=== PATIENT | female | born 1985 | race Caucasian/White ===

== ENCOUNTER 2018-01-30 08:38 | Emergency (ER) | payer BC ==
[~2018-01-30] VITALS: Ht 162.6 cm; Wt 89.9 kg
[2018-01-30 08:40] VITALS: BP 134/91
[2018-01-30] MEDS ORDERED: DEXAMETHASONE 4 MG/ML, 1ML ONE (09:29)
[2018-01-30] MEDS ORDERED: DEXAMETHASONE 4 MG/ML, 1ML PO ONE (09:30)
== END 2018-01-30 09:46 | disposition home or self-care (01) ==
LOC: ED 09:40
DX: M94.0 Chondrocostal junction syndrome [Tietze] (principal); B34.9 Viral infection, unspecified
CPT/HCPCS: 71046; 93005; 99283; J1100

== ENCOUNTER 2019-09-05 15:54 | Emergency (ER) | payer BC ==
[~2019-09-05] VITALS: Ht 162.6 cm; Wt 74.2 kg
[2019-09-05] MEDS ORDERED: CEFTRIAXONE PMX 1GM/50ML 50 ML ONE (17:17)
[2019-09-05] MEDS ORDERED: KETOROLAC 30 MG/1 ML ONE (17:18)
[2019-09-05 17:32] LABS: BASOPHILS % (AUTO) 0 % (0-1); EOSINOPHILS # (AUTO) 0.02 x10^3/uL (0-0.4); EOSINOPHILS % (AUTO) 0 % (1-7); LYMPHOCYTES # (AUTO) 0.99 x10^3/uL (1-3.4); LYMPHOCYTES % (AUTO) 9 % (22-44); MD NO; MEAN CORPUSCULAR HEMOGLOBIN 31.4 pg (27.0-34.8); MEAN CORPUSCULAR HGB CONC 33.7 g/dL (32.4-35.8); MEAN CORPUSCULAR VOLUME 93.3 fL (80-100); MEAN PLATELET VOLUME 7.8 fL (7.4-10.4); MONOCYTES # (AUTO) 0.85 x10^3/uL (0.2-0.8); MONOCYTES % (AUTO) 8 % (2-9); NEUTROPHILS # (AUTO) 9.29 x10^3/uL (1.8-6.8); NEUTROPHILS % (AUTO) 83 % (42-75); PLATELET COUNT 261 x10^3/uL (130-400); RED BLOOD COUNT 4.26 x10^6/uL (3.82-5.3); RED CELL DISTRIBUTION WIDTH 12.5 % (9.6-15.2)
[2019-09-05 17:41] LABS: ALBUMIN 3.4 g/dL (3.4-5.0); ANION GAP 8 mmol/L (5-15); CALCIUM 8.5 mg/dL (8.5-10.1); CHLORIDE 105 mmol/L (98-107)
[2019-09-05 17:59] LABS: MICROSCOPIC INDICATED
[2019-09-05] MEDS ORDERED: SODIUM CHLORIDE FLUSH 10ML SYR IVF ONE (18:00)
[2019-09-05] MEDS ORDERED: CEFTRIAXONE PMX 1GM/50ML 50 ML IVPB ONE (18:00)
[2019-09-05] MEDS ORDERED: SODIUM CHLORIDE 0.9% 1,000ML IVBOLUS ONE (18:00)
[2019-09-05] MEDS ORDERED: KETOROLAC 30 MG/1 ML IVPush ONE (18:00)
[2019-09-05 18:48] VITALS: BP 118/78
--- NOTE | 2019-09-05 18:48 | NUR ---
TASK RN. PT D/C'D PER ORDERS. STEADY GAIT UPON D/C, HAS ALL OWN BELONGINGS.
== END 2019-09-05 18:50 | disposition home or self-care (01) ==
LOC: ED 17:09
DX: N10 Acute pyelonephritis (principal); R00.0 Tachycardia, unspecified; I51.7 Cardiomegaly; R50.9 Fever, unspecified
CPT/HCPCS: 36415; 80048; 81001; 82040; 83605; 84145; 85025; 87040; 87086; 93005; 96365; 96375; 99284; J0696; J1885; J7030

== ENCOUNTER 2020-03-08 14:21 | Emergency (ER) | payer BC ==
[~2020-03-08] VITALS: Ht 160 cm; Wt 77.6 kg
[2020-03-08 14:30] VITALS: BP 118/74
[2020-03-08] MEDS ORDERED: LIDOCAINE-MPF 1%, 5ML ONE (14:59)
[2020-03-08] MEDS ORDERED: DIPH,PERTUSS(ACELL),TET VAC/PF 0.5 ML IM-VACC ONE ×2 (14:59→15:00)
[2020-03-08] MEDS ORDERED: LIDOCAINE-MPF 1%, 5ML INFIL ONE (15:00)
--- NOTE | 2020-03-08 15:10 | NUR ---
SHARRI INFANTE WAS IN TO SEE PT. TDAP GIVEN. PT HAS SMALL LACERATION TO R BASE OF THUMB. NOT ACTIVELY BLEEDING. UNDERSTANDS POC. Addendum: 03/08/20 at 1510 by HBENSON SIGNIFICANT OTHER AT BS.
[2020-03-08] MEDS ORDERED: NEOSPORIN OINT. PKT 1 PACKET ONE ×2 (15:53→16:09)
--- NOTE | 2020-03-08 16:08 | NUR ---
SHARRI INFANTE AT TO SUTURE THUMB LAC AT THIS TIME. REPORTED TO EMETERIO WORLEY.
== END 2020-03-08 16:24 | disposition home or self-care (01) ==
LOC: ED 16:22
DX: S61.011A Laceration without foreign body of right thumb without damage to nail, initial encounter (principal); X58.XXXA Exposure to other specified factors, initial encounter; Y93.89 Activity, other specified; Y92.098 Other place in other non-institutional residence as the place of occurrence of the external cause; Y99.8 Other external cause status
CPT/HCPCS: 12001; 90471; 90715; 99283

== ENCOUNTER 2020-10-11 12:26 | Emergency (ER) | payer BC ==
[~2020-10-11] VITALS: Ht 162.6 cm; Wt 80.7 kg
[2020-10-11 12:33] VITALS: BP 119/90
[2020-10-11] MEDS ORDERED: ACETAMINOPHEN 325 MG TABLET PO ONE (13:00)
[2020-10-11] MEDS ORDERED: ACETAMINOPHEN 325 MG TABLET ONE (13:03)
== END 2020-10-11 14:18 | disposition home or self-care (01) ==
LOC: ED 14:01
DX: U07.1 COVID-19 (principal); J06.9 Acute upper respiratory infection, unspecified; R94.31 Abnormal electrocardiogram [ECG] [EKG]
CPT/HCPCS: 71045; 93005; 99283